=== PATIENT | female | born 1970 | race Caucasian/White ===

== ENCOUNTER → 2022-11-13 | Day surgery (SDC) | payer OTHER ==
[~2022-11-13] VITALS: Ht 165.1 cm; Wt 84.1 kg
[~2022-11-13] MED LIST: LIDOCAINE/PF 2% 5 ML VIAL IM ONE; PROPOFOL 1% 20 ML VIAL IVP ONE; SODIUM CHLORIDE 0.9% 1,000 ML IV ONE; SODIUM CHLORIDE 0.9% 1,000 ML ONE
[2022-11-13 07:34] LABS: COVID AG,FIA SOURCE NASAL SWAB
== END | disposition still patient (30) ==
LOC: SURGERY 07:16
PROVIDERS: ATTEND Internal Medicine Gastroenterology
DX: K29.70 Gastritis, unspecified, without bleeding (principal); K29.80 Duodenitis without bleeding; E66.3 Overweight; K31.89 Other diseases of stomach and duodenum; Z20.822 Contact with and (suspected) exposure to COVID-19; Z98.890 Other specified postprocedural states
CPT/HCPCS: 43239; 87426; 88305; 88312; 88313; C1769; J2704; J3490; J7030; C9803